=== PATIENT | female | born 1975 ===

== ENCOUNTER 2023-02-02 07:14 | Outpatient (CLI) | payer OTHER ==
[~2023-02-02 07:14] MED LIST: AMBIEN PAK10 MG; ASA325 M1; CELLCEPT500 MG; CYTOMEL5 MCG; LYRICA100 MG; PREDNISOLONE5 MG; PROGRAF1 MG; PROZAC40 MG; REGLAN 10ML5 MG/ML; SYNTHROID100 MCG; WELLBUTRIN SR150 MG; XANAX0.25 MG
== END 2023-02-02 07:19 | disposition home or self-care (01) ==
LOC: NUCLEAR 07:14
PROVIDERS: ATTEND Internal Medicine Gastroenterology
DX: M81.0 Age-related osteoporosis without current pathological fracture (principal)